=== PATIENT | male | born 1970 | race Caucasian/White ===

== ENCOUNTER 2022-10-24 14:32 | Outpatient (CLI) | payer OTHER, SELFPAY | END 2022-10-24 14:33 | disposition home or self-care (01) | PROVIDERS: Visit Provider Family Medicine | DX: R53.83 Other fatigue (principal); R42 Dizziness and giddiness | CPT/HCPCS: 80053; 84443 ==

== ENCOUNTER 2023-05-24 07:15 | Outpatient (CLI) | payer OTHER, SELFPAY ==
--- NOTE | 2023-05-24 09:01 | W.ANESCHARGE ---
Anesthesia Charges Start Date/Time Anesthesia Start Date: 05/24/23 Anesthesia Start Time: 08:04 Stop Date/Time Anesthesia Stop Date: 05/24/23 Anesthesia Stop Time: 09:00
--- NOTE | 2023-05-24 09:02 | W.ANESCHARGE ---
Anesthesia Charges Start Date/Time Anesthesia Start Date: 05/24/23 Anesthesia Start Time: 08:04 Stop Date/Time Anesthesia Stop Date: 05/24/23 Anesthesia Stop Time: 09:00
== END 2023-05-24 07:16 | disposition home or self-care (01) ==
LOC: OP CLINIC 07:17
PROVIDERS: PCP Emergency Medicine; Visit Provider Surgery
DX: Z12.11 Encounter for screening for malignant neoplasm of colon (principal); K62.1 Rectal polyp; Z86.010 Personal history of colon polyps
CPT/HCPCS: 00811; 45385; 88305; J2704

== ENCOUNTER 2023-09-20 12:46 | Emergency (ER) | payer OTHER, SELFPAY ==
[2023-09-20 12:50] VITALS: BP 154/96; PULSE 102; RESP 18; TEMP 37.1; O2SAT 94; BMI 32.5
--- NOTE | 2023-09-20 12:54 | ED_ITS ---
HPI - Psych General Time Seen by Provider: 12:55 <Jerzy Granado MD - Last Filed: 09/20/23 15:43> Date Seen: 09/20/23 <Jerzy Granado MD - Last Filed: 09/20/23 15:43> Chief Complaint: Psychiatric Problem/Disorder <Jerzy Granado MD - Last Filed: 09/20/23 15:43> Stated Complaint: mental health <Jerzy Granado MD - Last Filed: 09/20/23 15:43> Time Seen by Provider: 09/20/23 12:54 <Jerzy Granado MD - Last Filed: 09/20/23 15:43> Source: patient, RN notes reviewed and old records reviewed <Jerzy Granado MD - Last Filed: 09/20/23 15:43> Mode of arrival: ambulatory <Jerzy Granado MD - Last Filed: 09/20/23 15:43> Limitations: no limitations <Jerzy Granado MD - Last Filed: 09/20/23 15:43> History of Present Illness HPI Narrative: 52-year-old male who presents today with mental health concerns. Patient has a history of depression and anxiety, not currently on medication. He reports increased stressors but last several months including having had COVID in RSV the beginning of the year, as well as divorce from his and having to put his dog to sleep. Poor sleep for the last several days and racing thoughts, also little bit of paranoid that people are going to hurt him with police are going to, get him for looking at porn. Admits to suicidal thoughts, no plan. Denies recent alcohol use. Says he was on lithium many years ago but has not been on that for quite some time. Also complains of right frontal headache today, no history of head injury. <Jerzy Granado MD - Last Filed: 09/20/23 15:43> Related Data Home Medications: Home Medications ?Medication ?Instructions ?Recorded ?Confirmed sumatriptan succinate 50 mg tablet mg PO 10/24/22 06/22/23 Previous Rx's ?Medication ?Instructions ?Recorded albuterol sulfate 90 mcg/actuation 2 puff inhalation Q4-6H PRN 10/24/22 aerosol inhaler shortness of breath or wheezing #1 packet beclomethasone dipropionate 80 1 inh inhalation BID #10.6 grams 04/21/23 mcg/actuation HFA breath activated aerosol (Qvar RediHaler) lisinopril 10 mg tablet 10 mg PO DAILY #90 tabs 04/28/23 peg 3350-electrolytes 236 240 ml PO ONCE #4,000 mL 05/20/23 gram-22.74 gram-6.74 gram-5.86 gram solution (Golytely) amlodipine 10 mg tablet 10 mg PO DAILY #90 tabs 06/01/23 lisinopril 5 mg tablet 5 mg PO QDAY #90 tabs 06/01/23 <Jerzy Granado MD - Last Filed: 09/20/23 15:43> [facility] Medical History: Medical History (Updated 09/20/23 @ 15:18 by Jerzy Granado MD) Fever ?R50.9 - Fever, unspecified (ICD-10) Situational mixed anxiety and depressive disorder ?F43.23 - Adjustment disorder with mixed anxiety and depressed mood (ICD-10) Anxiety ?F41.9 - Anxiety disorder, unspecified (ICD-10) Encounter for preventive care ?Z00.00 - Encounter for general adult medical examination without abnormal findings (ICD-10) Screening for hyperlipidemia ?Z13.220 - Encounter for screening for lipoid disorders (ICD-10) Screening for diabetes mellitus ?Z13.1 - Encounter for screening for diabetes mellitus (ICD-10) Screening for colon cancer ?Z12.11 - Encounter for screening for malignant neoplasm of colon (ICD-10) Bronchospasm ?J98.01 - Acute bronchospasm (ICD-10) Smoking greater than 30 pack years ?F17.210 - Nicotine dependence, cigarettes, uncomplicated (ICD-10) Headache ?R51.9 - Headache, unspecified (ICD-10) Hypertension ?I10 - Essential (primary) hypertension (ICD-10) Situational depression ?F43.21 - Adjustment disorder with depressed mood (ICD-10) Dizzy ?R42 - Dizziness and giddiness (ICD-10) Fatigue ?R53.83 - Other fatigue (ICD-10) <Jerzy Granado MD - Last Filed: 09/20/23 15:43> Surgical History: Surgical History (Updated 04/21/23 @ 16:27 by Paulette Price MD) History of appendectomy ?Z90.49 - Acquired absence of other specified parts of digestive tract (ICD- 10) History of nephrectomy ?Z90.5 - Acquired absence of kidney (ICD-10) <Jerzy Granado MD - Last Filed: 09/20/23 15:43> Family History: Family History (Updated 04/21/23 @ 16:28 by Paulette Price MD) Father Coronary artery disease <Jerzy Granado MD - Last Filed: 09/20/23 15:43> Social History: Social History (Updated 04/21/23 @ 16:22 by Paulette Price MD) Narrative: age 16-present 1ppd Little interest or pleasure in doing things: more than half the days Feeling down, depressed, or hopeless: more than half the days <Jerzy Granado MD - Last Filed: 09/20/23 15:43> Exam Narrative: Exam Narrative: General: Well-developed and well-nourished, no acute distress Head: Atraumatic and normocephalic Eyes: Pupils are equal reactive, extraocular motions intact, conjunctiva clear ENT: External nose and ears are normal, posterior pharynx without erythema or exudate Neck: No midline cervical tenderness, full spontaneous range of motion the neck, trachea midline, no adenopathy Heart: Regular rate and rhythm no murmurs or thrills Lungs: Clear to auscultation bilaterally without wheezes or crackles Abdomen: Soft, nontender, nondistended with active bowel sounds Musculoskeletal: No tenderness, deformity, or edema Neurologic: Awake, alert, and oriented x3, no gross focal neurologic deficits, cranial nerves intact as tested Psych: Mild psychomotor agitation, suicide ideation without a plan Skin: No rashes <Jerzy Granado MD - Last Filed: 09/20/23 15:43> Const: Vital Signs, click to edit/add: Vital Signs - 24 hr 09/20/23 12:50 09/20/23 15:30 Temperature 98.7 F Pulse Rate [Pulse Oximeter] 102 H 83 Respiratory Rate 18 16 Blood Pressure [Ri ght Upper Arm] 154/96 H 136/87 Pulse Oximetry 94 94 Oxygen Delivery Me thod Room Air Room Air <Jerzy Granado MD - Last Filed: 09/20/23 15:43> Vital Signs, click to edit/add: Vital Signs - 24 hr 09/20/23 12:50 09/20/23 15:30 Temperature 98.7 F Pulse Rate [Pulse Oximeter] 102 H 83 Respiratory Rate 18 16 Blood Pressure [Ri ght Upper Arm] 154/96 H 136/87 Pulse Oximetry 94 94 Oxygen Delivery Me thod Room Air Room Air <Serena Ahn MD - Last Filed: 09/21/23 00:17> Course Course ED Course: Patient seen examined, reviewed most recent primary care offices are May 2019 for which was for follow-up of situational anxiety and depression, at that time was doing better. Patient presents today with increased anxiety and some paranoid thoughts, denies hallucinations, suicide ideation with no plan. Labs ordered to evaluate for medical problems especially given patient's nephrectomy status, Toradol IV given for headache as well as Zyprexa to help with patient's psychomotor agitation and anxiety. Social determinants of health include lack of access to affordable Healthcare. Medical problems complicating treatment includes smoking, anxiety depression pre-existing. <Jerzy Granado MD - Last Filed: 09/20/23 15:43> Reevaluation(s) Time of Reevaluation #1: 14:15 <Jerzy Granado MD - Last Filed: 09/20/23 15:43> Reevaluation #1: Labs ordered and independently interpreted by me with reassuring basic metabolic panel, negative urine drug screen. Patient is medically stable for behavioral health admission. <Jerzy Granado MD - Last Filed: 09/20/23 15:43> Time of Reevaluation #2: 15:11 <Jerzy Granado MD - Last Filed: 09/20/23 15:43> Reevaluation #2: Patient now admits he is having some voices that are telling him to kill himself. Zyprexa was given after this, patient is resting now, remains cooperative. Will look for inpatient mental health treatment. <Jerzy Granado MD - Last Filed: 09/20/23 15:43> Time of Reevaluation #3: 15:42 <Jerzy Granaod MD - Last Filed: 09/20/23 15:43> Reevaluation #3: Patient recheck, discussed plan for mental health admission. Patient appears little more calm but says he still feels anxious. Additional Zyprexa ordered along with nicotine replacement. Patient is holdable at this point. <Jerzy Granado MD - Last Filed: 09/20/23 15:43> Vital Signs Vital signs: Initial Vital Signs Temperature 98.7 F 09/20/23 12:50 Temperature Source Temporal Artery Scan 09/20/23 12:50 Pulse Rate 102 H 09/20/23 12:50 Respiratory Rate 18 09/20/23 12:50 Blood Pressure 154/96 H 09/20/23 12:50 Blood Pressure Mean 115 H 09/20/23 12:50 Blood Pressure Position Sitting 09/20/23 12:50 Pulse Oximetry 94 09/20/23 12:50 Oxygen Delivery Method Room Air 09/20/23 12:50 Vital Signs Temperature 98.7 F 09/20/23 12:50 Pulse Rate 102 H 09/20/23 12:50 Respiratory Rate 18 09/20/23 12:50 Blood Pressure 154/96 H 09/20/23 12:50 Pulse Oximetry 94 09/20/23 12:50 Oxygen Delivery Method Room Air 09/20/23 12:50 Temperature 98.7 F 09/20/23 12:50 Pulse Rate 83 09/20/23 15:30 Respiratory Rate 16 09/20/23 15:30 Blood Pressure 136/87 09/20/23 15:30 Pulse Oximetry 94 09/20/23 15:30 Oxygen Delivery Method Room Air 09/20/23 15:30 <Jerzy Granado MD - Last Filed: 09/20/23 15:43> Initial Vital Signs Temperature 98.7 F 09/20/23 12:50 Temperature Source Temporal Artery Scan 09/20/23 12:50 Pulse Rate 102 H 09/20/23 12:50 Respiratory Rate 18 09/20/23 12:50 Blood Pressure 154/96 H 09/20/23 12:50 Blood Pressure Mean 115 H 09/20/23 12:50 Blood Pressure Position Sitting 09/20/23 12:50 Pulse Oximetry 94 09/20/23 12:50 Oxygen Delivery Method Room Air 09/20/23 12:50 Vital Signs Temperature 98.7 F 09/20/23 12:50 Pulse Rate 102 H 09/20/23 12:50 Respiratory Rate 18 09/20/23 12:50 Blood Pressure 154/96 H 09/20/23 12:50 Pulse Oximetry 94 09/20/23 12:50 Oxygen Delivery Method Room Air 09/20/23 12:50 Temperature 98.7 F 09/20/23 12:50 Pulse Rate 83 09/20/23 15:30 Respiratory Rate 16 09/20/23 15:30 Blood Pressure 136/87 09/20/23 15:30 Pulse Oximetry 94 09/20/23 15:30 Oxygen Delivery Method Room Air 09/20/23 15:30 <Serena Ahn MD - Last Filed: 09/21/23 00:17> Medications Administered Medications: Generic Name Dose Route Start Last Admin Trade Name Freq PRN Reason Stop Dose Admin Nicotine 1 patch 09/20/23 15:45 09/20/23 15:50 Nicotine 21 Mg Patch TRANSDERMA 1 patch Q24H PALOMA Administration Discontinued Medications Generic Name Dose Route Start Last Admin Trade Name Freq PRN Reason Stop Dose Admin Acetaminophen 1,000 mg 09/20/23 18:59 09/20/23 19:03 Acetaminophen 500 Mg Tablet PO 09/20/23 19:00 1,000 mg ONCE ONE Administration Sodium Chloride 1,000 mls @ 1,000 mls/hr 09/20/23 13:30 09/20/23 15:54 0.9 % Sodium Chloride 1000 Ml IV 09/20/23 14:29 Infused .Q1H PALOMA Infusion Ketorolac Tromethamine 15 mg 09/20/23 13:19 09/20/23 14:06 Ketorolac 15 Mg/Ml Inj IVP 09/20/23 13:20 15 mg ONCE ONE Administration Olanzapine 5 mg 09/20/23 14:36 09/20/23 14:44 Olanzapine 5 Mg Tab.Rapdis PO 09/20/23 14:37 5 mg ONCE ONE Administration Olanzapine 5 mg 09/20/23 15:42 09/20/23 15:50 Olanzapine 5 Mg Tab.Rapdis PO 09/20/23 15:43 5 mg ONCE ONE Administration <Jerzy Granado MD - Last Filed: 09/20/23 15:43> Generic Name Dose Route Start Last Admin Trade Name Freq PRN Reason Stop Dose Admin Nicotine 1 patch 09/20/23 15:45 09/20/23 15:50 Nicotine 21 Mg Patch TRANSDERMA 1 patch Q24H PALOMA Administration Discontinued Medications Generic Name Dose Route Start Last Admin Trade Name Matt PRN Reason Stop Dose Admin Acetaminophen 1,000 mg 09/20/23 18:59 09/20/23 19:03 Acetaminophen 500 Mg Tablet PO 09/20/23 19:00 1,000 mg ONCE ONE Administration Sodium Chloride 1,000 mls @ 1,000 mls/hr 09/20/23 13:30 09/20/23 15:54 0.9 % Sodium Chloride 1000 Ml IV 09/20/23 14:29 Infused .Q1H PALOMA Infusion Ketorolac Tromethamine 15 mg 09/20/23 13:19 09/20/23 14:06 Ketorolac 15 Mg/Ml Inj IVP 09/20/23 13:20 15 mg ONCE ONE Administration Olanzapine 5 mg 09/20/23 14:36 09/20/23 14:44 Olanzapine 5 Mg Tab.Rapdis PO 09/20/23 14:37 5 mg ONCE ONE Administration Olanzapine 5 mg 09/20/23 15:42 09/20/23 15:50 Olanzapine 5 Mg Tab.Rapdis PO 09/20/23 15:43 5 mg ONCE ONE Administration <Serena Ahn MD - Last Filed: 09/21/23 00:17> MDM - Psych MDM Narrative Medical decision making narrative: Patient stable during his time here, felt significantly better after Zyprexa. He was accepted to a psychiatric facility in will be transferred in the next hour. <Serena Ahn MD - Last Filed: 09/21/23 00:17> Lab Data Labs: Lab Results 09/20/23 09/20/23 Range/Units 13:06 13:30 WBC 9.69 (4.50-11.00) K/uL RBC 6.00 H (4.30-5.90) m/uL Hgb 16.8 (13.5-17.5) gm/dL Hct 49.7 (37.0-53.0) % MCV 83 (80-100) fL MCH 28 (26-34) pg MCHC 34 (32-36) gm/dL RDW Coeff of Padmini 13.1 (11.5-15.5) % Plt Count 232 (140-440) K/uL Neut % (Auto) 68.4 (42.0-72.0) % Lymph % (Auto) 22.9 (20-44) % [place] % (Auto) 6.9 (0.0-11.0) % Eos % (Auto) 0.9 (0.0-7.0) % Baso % (Auto) 0.3 (0.0-3.0) % Neut # (Auto) 6.62 (1.7-7.0) K/uL Lymph # (Auto) 2.22 (0.90-2.90) K/uL [place] # (Auto) 0.70 (0.00-0.90) K/UL Eos # (Auto) 0.09 (0.00-0.50) K/uL Baso # (Auto) 0.03 (0.00-0.30) K/uL Abs Immat Gran (auto) 0.06 (0.00-0.30) K/uL Imm/Tot Granulo (auto) 0.6 % Sodium 142 (135-149) mmol/L Potassium 3.8 (3.6-5.1) mmol/L Chloride 107 (96-114) mmol/L Carbon Dioxide 24 (20-32) mmol/L Anion Gap 11 (7-15) mEq/L BUN 18 (7-30) mg/dL Creatinine 1.2 (0.5-1.5) mg/dL Estimated Creat Clear 79.94 Estimated GFR 73 ml/min Glucose 137 H (60-115) mg/dL Calcium 9.9 (8.4-10.6) mg/dL Total Bilirubin 0.7 (0.1-1.5) mg/dL Direct Bilirubin 0.3 (0.0-0.5) mg/dL AST 29 (12-35) U/L ALT 28 (4-50) U/L Alkaline Phosphatase 83 (40-150) U/L Total Protein 7.4 (6.0-8.3) g/dL Albumin 4.6 (3.3-5.0) g/dL TSH 1.380 (0.270-4.200) uIU/mL Salicylates < 1.0 L (1.0-10) mg/dL Urine Opiates Screen Negative (Negative) Ur Oxycodone Screen Negative (Negative) Urine Methadone Screen Negative (Negative) Acetaminophen < 10.0 L (10.0-30.0) ug/mL Ur Barbiturates Screen Negative (Negative) U Tricyclic Antidepress Negative (Negative) Ur Phencyclidine Scrn Negative (Negative) Ur Amphetamines Screen Negative (Negative) U Methamphetamines Scrn Negative (Negative) U Benzodiazepines Scrn Negative (Negative) Urine Cocaine Screen Negative (Negative) U Marijuana (THC) Screen Negative (Negative) Ur Drug Screen Comment See Note SARS-CoV-2 (PCR) Negative SARS-CoV-2 (Negative) Influenza Type A (PCR) Negative PCR FLU A (Negative) Influenza Type B (PCR) Negative PCR FLU B (Negative) RSV (PCR) Negative PCR RSV (Negative) <Jerzy Granado MD - Last Filed: 09/20/23 15:43> Lab Results 09/20/23 09/20/23 Range/Units 13:06 13:30 WBC 9.69 (4.50-11.00) K/uL RBC 6.00 H (4.30-5.90) m/uL Hgb 16.8 (13.5-17.5) gm/dL Hct 49.7 (37.0-53.0) % MCV 83 (80-100) fL MCH 28 (26-34) pg MCHC 34 (32-36) gm/dL RDW Coeff of Padmini 13.1 (11.5-15.5) % Plt Count 232 (140-440) K/uL Neut % (Auto) 68.4 (42.0-72.0) % Lymph % (Auto) 22.9 (20-44) % [place] % (Auto) 6.9 (0.0-11.0) % Eos % (Auto) 0.9 (0.0-7.0) % Baso % (Auto) 0.3 (0.0-3.0) % Neut # (Auto) 6.62 (1.7-7.0) K/uL Lymph # (Auto) 2.22 (0.90-2.90) K/uL [place] # (Auto) 0.70 (0.00-0.90) K/UL Eos # (Auto) 0.09 (0.00-0.50) K/uL Baso # (Auto) 0.03 (0.00-0.30) K/uL Abs Immat Gran (auto) 0.06 (0.00-0.30) K/uL Imm/Tot Granulo (auto) 0.6 % Sodium 142 (135-149) mmol/L Potassium 3.8 (3.6-5.1) mmol/L Chloride 107 (96-114) mmol/L Carbon Dioxide 24 (20-32) mmol/L Anion Gap 11 (7-15) mEq/L BUN 18 (7-30) mg/dL Creatinine 1.2 (0.5-1.5) mg/dL Estimated Creat Clear 79.94 Estimated GFR 73 ml/min Glucose 137 H (60-115) mg/dL Calcium 9.9 (8.4-10.6) mg/dL Total Bilirubin 0.7 (0.1-1.5) mg/dL Direct Bilirubin 0.3 (0.0-0.5) mg/dL AST 29 (12-35) U/L ALT 28 (4-50) U/L Alkaline Phosphatase 83 (40-150) U/L Total Protein 7.4 (6.0-8.3) g/dL Albumin 4.6 (3.3-5.0) g/dL TSH 1.380 (0.270-4.200) uIU/mL Salicylates < 1.0 L (1.0-10) mg/dL Urine Opiates Screen Negative (Negative) Ur Oxycodone Screen Negative (Negative) Urine Methadone Screen Negative (Negative) Acetaminophen < 10.0 L (10.0-30.0) ug/mL Ur Barbiturates Screen Negative (Negative) U Tricyclic Antidepress Negative (Negative) Ur Phencyclidine Scrn Negative (Negative) Ur Amphetamines Screen Negative (Negative) U Methamphetamines Scrn Negative (Negative) U Benzodiazepines Scrn Negative (Negative) Urine Cocaine Screen Negative (Negative) U Marijuana (THC) Screen Negative (Negative) Ur Drug Screen Comment See Note SARS-CoV-2 (PCR) Negative SARS-CoV-2 (Negative) Influenza Type A (PCR) Negative PCR FLU A (Negative) Influenza Type B (PCR) Negative PCR FLU B (Negative) RSV (PCR) Negative PCR RSV (Negative) <Serena Ahn MD - Last Filed: 09/21/23 00:17> Discharge Plan Discharge Clinical Impression: Suicidal ideation, Situational depression, Depression, Auditory hallucinations <Jerzy Granado MD - Last Filed: 09/20/23 15:43> Patient Disposition: Xfer Psychiatric Hosp <Jerzy Granado MD - Last Filed: 09/20/23 15:43> Condition: Stable <Jerzy Granado MD - Last Filed: 09/20/23 15:43> Prescriptions: No Action sumatriptan succinate 50 mg tablet PO albuterol sulfate 90 mcg/actuation HFA aerosol inhaler 2 puff inhalation Q4-6H PRN (Reason: shortness of breath or wheezing) Qty: 1 0RF Qvar RediHaler 80 mcg/actuation HFA aerosol breath activated 1 inh inhalation BID Qty: 10.6 0RF amlodipine 10 mg tablet 10 mg PO DAILY Qty: 90 3RF lisinopril 5 mg tablet 5 mg PO QDAY Qty: 90 0RF Rx Instructions: do not fill 10mg lisinopril 10 mg tablet 10 mg PO DAILY Qty: 90 3RF peg 3350-electrolytes [Golytely] 236-22.74-6.74 -5.86 gram recon soln 240 ml PO ONCE Qty: 4000 0RF Rx Instructions: 4pm evening prior to procedure, drink 8oz glass of solution every 15 minutes until 1/2 of solution is gone. 6 hours prior to procedure drink an 8oz glass every 15 minutes until the remaining solution is gone. <Jerzy Granado MD - Last Filed: 09/20/23 15:43> Stand Alone Forms: MyHealth Info Instructions <Jerzy Granado MD - Last Filed: 09/20/23 15:43>
[2023-09-20 13:24] LABS: Amphetamine Screen Urine Negative (Negative); Barbiturate Screen Urine Negative (Negative); Benzodiazepines Screen Urine Negative (Negative); Cannabinoid Screen Urine Negative (Negative); Cocaine Screen Urine Negative (Negative); Methadone Screen Urine Negative (Negative); Methamphetamines Screen Urine Negative (Negative); Opiate Screen Urine Negative (Negative); Oxycodone Screen Urine Negative (Negative); Phencyclidine Screen Urine Negative (Negative); Tricyclic Antidepressant Urine Negative (Negative)
[2023-09-20 13:59] LABS: Chloride* 107 mmol/L (96-114); Potassium* 3.8 mmol/L (3.6-5.1); Sodium* 142 mmol/L (135-149)
[2023-09-20 14:02] LABS: Anion Gap 11 mEq/L (7-15); Blood Urea Nitrogen* 18 mg/dL (7-30); Carbon Dioxide* 24 mmol/L (20-32); Creatinine* 1.2 mg/dL (0.5-1.5); Est. Creatinine Clearance* 79.94; Estimated Glomerular Filt Rate 73 ml/min; Glucose* 137 mg/dL (60-115)
[2023-09-20 14:03] LABS: Calcium* 9.9 mg/dL (8.4-10.6)
[2023-09-20] MEDS: 0.9 % SODIUM CHLORIDE 1000 ml 1,000 ML IV (14:06)
[2023-09-20] MEDS: KETOROLAC 15 MG/ML inj IVP (14:06)
[2023-09-20 14:27] LABS: PCR FLU A Negative PCR FLU A (Negative); PCR FLU B Negative PCR FLU B (Negative); PCR RSV Negative PCR RSV (Negative); SARS PCR* Negative SARS-CoV-2 (Negative)
[2023-09-20] MEDS: OLANZapine 5 MG TAB.RAPDIS PO ×2 (14:44→15:50)
[2023-09-20 15:30] VITALS: BP 136/87; PULSE 83; RESP 16; O2SAT 94
[2023-09-20 15:40] LABS: Basophils Absolute Auto 0.03 K/uL (0.00-0.30); Basophils Percent Auto 0.3 % (0.0-3.0); Eosinophils Absolute Auto 0.09 K/uL (0.00-0.50); Eosinophils Percent Auto 0.9 % (0.0-7.0); Hematocrit 49.7 % (37.0-53.0); Hemoglobin* 16.8 gm/dL (13.5-17.5); Immature Granulocytes Abs Auto 0.06 K/uL (0.00-0.30); Immature Granulocytes Pct Auto 0.6 %; Lymphocytes Absolute Auto 2.22 K/uL (0.90-2.90); Lymphocytes Percent Auto 22.9 % (20-44); Mean Corpuscular HGB Conc 34 gm/dL (32-36); Mean Corpuscular Hemoglobin 28 pg (26-34); Mean Corpuscular Volume 83 fL (80-100); Monocytes Percent Auto 6.9 % (0.0-11.0); Neutrophils Absolute Auto 6.62 K/uL (1.7-7.0); Neutrophils Percent Auto 68.4 % (42.0-72.0); Platelet Count* 232 K/uL (140-440); RDW Coefficient of Variation % 13.1 % (11.5-15.5); White Blood Count* 9.69 K/uL (4.50-11.00)
[2023-09-20 15:50] LABS: Albumin* 4.6 g/dL (3.3-5.0)
[2023-09-20] MEDS: NICOTINE 21 MG PATCH 1 PATCH TRANSDERMA (15:50)
[2023-09-20 15:53] LABS: Bilirubin Direct* 0.3 mg/dL (0.0-0.5); Bilirubin Total* 0.7 mg/dL (0.1-1.5)
[2023-09-20 15:54] LABS: Acetaminophen* < 10.0 ug/mL (10.0-30.0); Alanine Aminotransferase* 28 U/L (4-50); Alkaline Phosphatase* 83 U/L (40-150); Aspartate Amino Transferase* 29 U/L (12-35); Salicylate* < 1.0 mg/dL (1.0-10); Total Protein* 7.4 g/dL (6.0-8.3)
[2023-09-20 15:55] LABS: Slide Review Reflex No
--- NOTE | 2023-09-20 15:58 | PC.SOCIAL ---
Addendum entered by FABIAN Palafox 09/20/23 16:39: residential program worker faxed referral packet to [facility] for evaluation for admit. Emergency Department phone number was provided for follow up. Original Note: Social work: Per MD order for in-pt mental health placement, called [facility] intake [phone] and provided initial information by phone. Packet of additional information to be faxed when lab results are available to [facility] at fax#: [phone]. Called [facility] direct ([facility]) [phone] and provided initial information to [facility]. Packet to be faxed when labs are available to [facility] at [phone]. Both facilities have been provided with the ED phone number to call back with clinical questions or decision on admit. If both of the above facilities are unable to accept pt, the next closer facilities that show bed availability on the [place] [facility] website can be called: 1. [facility] [phone]. 2. [facility] [phone]. 3.[facility] [phone] [facility] [phone]. 5. [facility] [phone].
[2023-09-20] MEDS: ACETAMINOPHEN 500 MG TABLET 1000 MG PO (19:03)
[2023-09-21 00:31] VITALS: TEMP 37.1
[2023-09-21 00:36] VITALS: BP 132/78; PULSE 85; RESP 16; TEMP 36.7; O2SAT 94
[2023-09-21 00:52] VITALS: BP 132/78; PULSE 85; RESP 16; TEMP 36.7
== END 2023-09-21 00:52 ==
PROVIDERS: Emergency Provider Family Medicine; PCP Emergency Medicine
DX: R45.851 Suicidal ideations (principal); F32.A Depression, unspecified; R44.0 Auditory hallucinations
CPT/HCPCS: 36415; 80048; 80076; 80143; 80179; 80306; 84443; 85025; 87631; 96374; 99285; A9270; J1885; J7030; S4990

== ENCOUNTER 2023-09-21 00:43 | Outpatient (CLI) | payer OTHER, SELFPAY | END 2023-09-21 00:44 | disposition home or self-care (01) | LOC: AMB 19:54 | PROVIDERS: PCP Emergency Medicine; Visit Provider Family Medicine | DX: R45.851 Suicidal ideations (principal); F32.A Depression, unspecified; R44.0 Auditory hallucinations | CPT/HCPCS: A0425; A0427 ==

== ENCOUNTER 2023-10-05 12:36 | Outpatient (CLI) | payer OTHER, SELFPAY | END 2023-10-05 12:37 | disposition home or self-care (01) | LOC: NFLDREF 10-07 10:38 | PROVIDERS: PCP Emergency Medicine; Referring Provider Emergency Medicine; Visit Provider Emergency Medicine | DX: Z13.1 Encounter for screening for diabetes mellitus (principal); Z13.6 Encounter for screening for cardiovascular disorders | CPT/HCPCS: 80061; 82947 ==